=== PATIENT | male | born 1960 | race Caucasian/White ===

== ENCOUNTER 2020-02-10 20:06 | Emergency (ER) | payer MEDICAID ==
[~2020-02-10] VITALS: Ht 193 cm; Wt 110.3 kg
[~2020-02-10 20:06] MED LIST: OXYC5TAB3 PO; SULF-169 PO
[2020-02-10 20:08] VITALS: BP 114/65
== END 2020-02-10 22:13 | disposition home or self-care (01) ==
LOC: ED 20:41
DX: M79.651 Pain in right thigh (principal); F17.210 Nicotine dependence, cigarettes, uncomplicated; Z72.9 Problem related to lifestyle, unspecified
CPT/HCPCS: 99281; 99406

== ENCOUNTER 2020-02-13 22:08 | Emergency (ER) | payer MEDICAID ==
[~2020-02-13] VITALS: Ht 185.4 cm; Wt 102.0 kg
--- NOTE | 2020-02-13 22:49 | NUR ---
TECH AT BEDSIDE FOR WOUND DRESSING.
--- NOTE | 2020-02-13 22:53 | NUR ---
PT REFUSING TO ALLOW TECH TO DRESS THE WOUND. INFORMED.
--- NOTE | 2020-02-13 23:00 | NUR ---
TO BEDSIDE FOR RECHECK
--- NOTE | 2020-02-13 23:16 | NUR ---
PT GIVEN HIS DC PAPERWORK. PT STATES "WHAT DO YOU WANT ME TO DO WITH THAT". THIS RN ATTEMPTED TO THEN READ HIM HIS DC PAPERWORK WHICH HE THEN CONTINUOUSLY SPOKE OVER THIS RN. PT REFUSED TO REPEAT BACK DC TEACHINGS. THIS RN ASKED THE PT IF WE COULD DRESS HIS WOUND BEFORE HE LEFT AND HE REFUSED. PT WAS ASKED IF HE WANTED ASSISTANCE PUTTING HIS PANTS AND SHOES ON AND HE REFUSED. PT REFUSED DC VITALS. PT REFUSED TO SIGN DC PAPERWORK.
--- NOTE | 2020-02-13 23:30 | NUR ---
PT HAS DRESSED SELF. PT NOW SITTING ON END OF BED. PT WAS INFORMED IT IS TIME TO LEAVE, PT ARGUMENTATIVE.
--- NOTE | 2020-02-13 23:35 | NUR ---
PT WAS OFFERED ASSISTANCE WITH HIS WALKER WHICH HE REFUSED. PT WAS OFFERED TAXI VOUCHER AND A BUS PASS WHICH HE DECLINED.
--- NOTE | 2020-02-13 23:46 | NUR ---
AFTER A LONG WINDED CONVERSATION BY THIS RN AND LISSET ACUÑA PT CONTINUES TO REFUSE TO LEAVE. SECURITY CALLED AT THIS TIME.
--- NOTE | 2020-02-13 23:57 | NUR ---
SECURITY WAS ABLE TO CONVINCE PT TO LEAVE WITH TAXI VOUCHER. TAXI VOUCHER PROVIDED TO PTS CHOICE OF THE MOTEL [address] ON [address]. PT AMBULATES WITH STEADY GAIT WITH AND WITHOUT HIS WALKER. HOWEVER ONCE IN LOBBY PT THEN STATES HE DOES NOT THE TAXI VOUCHER. SECURITY REMAINS WITH PT IN THE LOBBY AT THIS TIME.
== END 2020-02-14 00:25 | disposition home or self-care (01) ==
LOC: ED 02-14 00:14
DX: S71.101A Unspecified open wound, right thigh, initial encounter (principal); F17.200 Nicotine dependence, unspecified, uncomplicated; X58.XXXA Exposure to other specified factors, initial encounter; Y93.89 Activity, other specified; Y92.89 Other specified places as the place of occurrence of the external cause; Y99.8 Other external cause status
CPT/HCPCS: 99283

== ENCOUNTER 2020-02-25 20:13 | Emergency (ER) | payer MEDICAID ==
[~2020-02-25] VITALS: Ht 193 cm; Wt 107.7 kg
[2020-02-25 22:11] LABS: BASOPHILS # (AUTO) 0.01 x10^3/uL (0-0.1); BASOPHILS % (AUTO) 0 % (0-1); EOSINOPHILS % (AUTO) 6 % (1-7); LYMPHOCYTES # (AUTO) 1.08 x10^3/uL (1-3.4); LYMPHOCYTES % (AUTO) 17 % (22-44); MD NO; MEAN CORPUSCULAR HEMOGLOBIN 26.9 pg (27.5-34.5); MEAN CORPUSCULAR HGB CONC 33.2 g/dL (33.2-36.2); MEAN CORPUSCULAR VOLUME 81.1 fL (81-97); MONOCYTES # (AUTO) 0.71 x10^3/uL (0.2-0.8); MONOCYTES % (AUTO) 11 % (2-9); NEUTROPHILS % (AUTO) 65 % (42-75); PLATELET COUNT 269 x10^3/uL (130-400); RED BLOOD COUNT 4.78 x10^6/uL (4.38-5.82); RED CELL DISTRIBUTION WIDTH 17.9 % (9.4-14.8)
[2020-02-25 22:23] LABS: ALBUMIN 3.8 g/dL (3.4-5.0); ANION GAP 6 mmol/L (5-15); CALCIUM 9.3 mg/dL (8.5-10.1); CHLORIDE 107 mmol/L (98-107); CREATININE 0.76 mg/dL (0.7-1.3)
--- NOTE | 2020-02-25 22:39 | NUR ---
PT AMBULATES FROM LOBBY TO ROOM WITH STEADY GAIT.
--- NOTE | 2020-02-25 23:45 | NUR ---
PT RESTING IN [facility] AT THIS TIME; JUNIOR BARROSO AT FOR PT HISTORY AND ASSESSMENT.
[2020-02-26] MEDS ORDERED: HYDROcodone/APAP 5/325 TABLET PO ONE
[2020-02-26] MEDS ORDERED: HYDROcodone/APAP 5/325 TABLET ONE (00:03)
--- NOTE | 2020-02-26 00:12 | NUR ---
PT MEDICATED PER JAN. PT VSS AND UPDATED IN EMR.
[2020-02-26 00:13] VITALS: BP 155/74
[2020-02-26] MEDS ORDERED: HYDROmorphone 1 MG/ML, 1ML INJ IM ONE (01:00)
[2020-02-26] MEDS ORDERED: HYDROmorphone 1 MG/ML, 1ML INJ ONE (01:07)
--- NOTE | 2020-02-26 01:33 | NUR ---
PT MEDICATED PER JAN FOR PAIN. PT REMOVED ALL VS MONITORS. PT EDUCATED ON NEED TO LEAVE ALONE. PT RESTING IN [facility] AT THIS TIME; GLADIS
--- NOTE | 2020-02-26 04:06 | NUR ---
PT D/C WITH D/C SUMMARY AND SCRIPTS. ALL QUESTIONS ANSWERED. PT WOUND DRESSED BY TECH. PT DENIES ANY OTHER NEEDS PERTAINING TO THIS VISIT. PT AMBULATES TO REGISTRATION DESK WITH STEADY GAIT WITH ASSISTANCE OF WALKER FOR D/C HOME.
== END 2020-02-26 04:20 | disposition home or self-care (01) ==
LOC: ED 22:50
DX: S71.101D Unspecified open wound, right thigh, subsequent encounter (principal); Z76.0 Encounter for issue of repeat prescription; F17.200 Nicotine dependence, unspecified, uncomplicated; X58.XXXD Exposure to other specified factors, subsequent encounter
CPT/HCPCS: 36415; 80048; 82040; 83605; 85025; 87040; 99284

== ENCOUNTER 2020-04-19 08:35 | Emergency (ER) | payer MEDICAID ==
[~2020-04-19] VITALS: Ht 193 cm; Wt 105.7 kg
[2020-04-19] MEDS ORDERED: OxyconTIN ER 10 MG TAB.ER PO ONE (09:30)
[2020-04-19] MEDS ORDERED: OXYcodone IR 5MG TABLET ONE (09:42)
[2020-04-19 09:45] VITALS: BP 112/74
--- NOTE | 2020-04-19 09:52 | NUR ---
MEDICATED PER ORDERS
[2020-04-19] MEDS ORDERED: OXYcodone IR 5MG TABLET PO ONE (10:00)
== END 2020-04-19 11:11 | disposition home or self-care (01) ==
LOC: ED 09:04
DX: K40.91 Unilateral inguinal hernia, without obstruction or gangrene, recurrent (principal); M79.651 Pain in right thigh; Z93.3 Colostomy status
CPT/HCPCS: 99283

== ENCOUNTER 2020-06-04 08:54 | Emergency (ER) | payer MEDICAID ==
[~2020-06-04] VITALS: Ht 193 cm; Wt 108.0 kg
[2020-06-04 08:56] VITALS: BP 143/82
[2020-06-04] MEDS ORDERED: NEOSPORIN OINT. PKT 1 PACKET ONE (09:32)
[2020-06-04] MEDS ORDERED: HYDROcodone/APAP 5/325 TABLET ONE (09:50)
[2020-06-04] MEDS ORDERED: HYDROcodone/APAP 5/325 TABLET PO ONE (10:00)
== END 2020-06-04 10:18 | disposition home or self-care (01) ==
LOC: ED 09:15
DX: L03.115 Cellulitis of right lower limb (principal); Z93.3 Colostomy status
CPT/HCPCS: 99283